=== PATIENT | male | born 1980 | race Hispanic/Latino ===

== ENCOUNTER 2020-12-21 11:20 | Emergency (ER) | payer BC ==
[~2020-12-21] VITALS: Ht 180.3 cm; Wt 104.5 kg
[2020-12-21] MEDS ORDERED: LORTAB 5/3255 MG PO (11:57)
[2020-12-21 12:39] LABS: HEMATOCRIT 49.2 % (39.0-50.0); HEMOGLOBIN 16.5 g/dl (14.0-18.0); IMMATURE GRANULOCYTES 0.3 % (0.0-5.0); MEAN CELL VOLUME 82.1 fL CALC (80.0-100.0); MEAN CORPUSCULAR HGB 27.5 pG CALC (26.0-32.0); MEAN CORPUSCULAR HGB CONC 33.5 g/dL CAL (32.0-36.0); NEUT# 5.2 thou/uL (1.82-7.42); RED BLOOD COUNT 5.99 mill/uL (4.70-6.10); RED CELL DISTRI WIDTH 11.8 % (11.5-15.5)
[2020-12-21 13:14] LABS: ALBUMIN 4.5 g/dL (3.2-5.0); ALKALINE PHOSPHATASE 79 u/l (38-126); ANION GAP 11 (6-22 (CALC)); BILIRUBIN, TOTAL 0.7 mg/dL (0.0-1.4); BUN 12 mg/dL (9-20); BUN/CREATININE RATIO 17 (12-20 (CALC)); CARBON DIOXIDE 30 mmol/l (22-30); CHLORIDE 101 mmol/l (95-108); CREATININE 0.7 mg/dL (0.7-1.3); GFR > 60 ML/MIN (>=60 (CALC)); GFR FOR AFR.AMER. > 60 ML/MIN (>=60 (CALC)); POTASSIUM 4.1 mmol/l (3.5-5.1); SGOT/AST 52 u/l (17-59); SODIUM 138 mmol/l (137-146)
[2020-12-21 13:49] VITALS: BP 105/54
== END 2020-12-21 14:00 | disposition home or self-care (01) | DRG 149 ==
LOC: ED 11:20
PROVIDERS: Family Medicine
DX: H81.12 Benign paroxysmal vertigo, left ear (principal)

== ENCOUNTER 2022-06-23 07:47 | Emergency (ER) | payer BC ==
[2022-06-23] VITALS (22 sets, daily range): BP systolic 89–134; BP diastolic 40–70
[~2022-06-23] VITALS: Ht 180.3 cm; Wt 77.0 kg
[~2022-06-23 07:47] MED LIST: LORTAB 5/3255 MG PO
[2022-06-23 09:43] LABS: BASO% 0.3 % (0-3); HEMATOCRIT 48.9 % (39.0-50.0); HEMOGLOBIN 16.5 g/dl (14.0-18.0); IMMATURE GRANULOCYTES 0.2 % (0.0-5.0); LYMPH% 6.9 % (15-41); MEAN CELL VOLUME 82.3 fL CALC (80.0-100.0); MEAN CORPUSCULAR HGB 27.8 pG CALC (26.0-32.0); MEAN CORPUSCULAR HGB CONC 33.7 g/dL CAL (32.0-36.0); MONO% 5.4 % (2-13); NEUT# 8.29 thou/uL (1.82-7.42); NEUT% 87.2 % (42-76); RED BLOOD COUNT 5.94 mill/uL (4.70-6.10); RED CELL DISTRI WIDTH 11.7 % (11.5-15.5)
[2022-06-23] MEDS ORDERED: ATORVASTATIN CA10 MG PO (09:45)
[2022-06-23 09:48] LABS: ALBUMIN 4.2 g/dL (3.2-5.0); ALKALINE PHOSPHATASE 58 u/l (38-126); ANION GAP 14 (6-22 (CALC)); BILIRUBIN, TOTAL 0.7 mg/dL (0.2-1.3); BUN 12 mg/dL (9-20); BUN/CREATININE RATIO 17 (12-20 (CALC)); CHLORIDE 103 mmol/l (95-108); CREATININE 0.7 mg/dL (0.7-1.3); GFR FOR AFR.AMER. > 60 ML/MIN (>=60 (CALC)); GFR OTHER RACES > 60 ML/MIN (>=60 (CALC)); POTASSIUM 4.2 mmol/l (3.5-5.1); SGOT/AST 28 u/l (17-59); SODIUM 134 mmol/l (137-146); TOTAL PROTEIN 6.8 g/dL (6.3-8.2)
[2022-06-23 09:51] LABS: CARBON DIOXIDE 21 mmol/l (22-30)
[2022-06-23] MEDS ORDERED: CIPROFLOXACN500 MG PO (13:51)
[2022-06-23] MEDS ORDERED: METRONIDAZOLE500 MG PO (13:51)
[2022-06-23] MEDS ORDERED: ZOFRAN4 MG/TAB PO (13:51)
[2022-06-23 14:11] LABS: URINE BILIRUBIN - DIPSTICK NEGATIVE (NEGATIVE); URINE BLOOD DIPSTICK NEGATIVE (NEGATIVE); URINE COLOR YELLOW; URINE GLUCOSE - DIPSTICK NEGATIVE (NEGATIVE); URINE KETONE NEGATIVE (NEGATIVE); URINE LEUK ESTERASE NEGATIVE (NEGATIVE); URINE PROTEIN - DIPSTICK NEGATIVE (NEG-TRACE); URINE SPECIFIC GRAVITY <=1.005; URINE UROBILINOGEN - DIPSTICK 0.2 E.U./dL (0.2)
[2022-06-23 14:14] LABS: URINE NITRITE - DIPSTICK NEGATIVE (Negative)
== END 2022-06-23 14:32 | disposition home or self-care (01) | DRG 373 ==
LOC: ED 07:47
PROVIDERS: Family Medicine
DX: A04.5 Campylobacter enteritis (principal)

== ENCOUNTER 2022-07-17 16:51 | Emergency (ER) | payer BC ==
[~2022-07-17] VITALS: Ht 180.3 cm; Wt 101.0 kg
[~2022-07-17 16:51] MED LIST changes: +ATORVASTATIN CA10 MG PO; +CIPROFLOXACN500 MG PO; +METRONIDAZOLE500 MG PO; +ZOFRAN4 MG/TAB PO
[2022-07-17 17:17] VITALS: BP 148/82
[2022-07-17 17:36] LABS: BASO% 0.5 % (0-3); EOS% 1.1 % (0-8); HEMATOCRIT 49.4 % (39.0-50.0); HEMOGLOBIN 16.6 g/dl (14.0-18.0); IMMATURE GRANULOCYTES 0.1 % (0.0-5.0); LYMPH% 33.2 % (15-41); MEAN CELL VOLUME 81.9 fL CALC (80.0-100.0); MEAN CORPUSCULAR HGB 27.5 pG CALC (26.0-32.0); MEAN CORPUSCULAR HGB CONC 33.6 g/dL CAL (32.0-36.0); MONO% 6.8 % (2-13); NEUT# 4.8 thou/uL (1.82-7.42); NEUT% 58.3 % (42-76); RED BLOOD COUNT 6.03 mill/uL (4.70-6.10); RED CELL DISTRI WIDTH 11.8 % (11.5-15.5)
[2022-07-17 17:49] LABS: ALKALINE PHOSPHATASE 73 u/l (38-126); BILIRUBIN, TOTAL 0.6 mg/dL (0.2-1.3); BUN 16 mg/dL (9-20); BUN/CREATININE RATIO 17 (12-20 (CALC)); CARBON DIOXIDE 23 mmol/l (22-30); CHLORIDE 104 mmol/l (95-108); GFR FOR AFR.AMER. > 60 ML/MIN (>=60 (CALC)); GFR OTHER RACES > 60 ML/MIN (>=60 (CALC)); LIPASE 87 u/l (23-300); POTASSIUM 3.6 mmol/l (3.5-5.1); SGOT/AST 47 u/l (17-59)
[2022-07-17 17:51] LABS: ALBUMIN 5.2 g/dL (3.2-5.0); ANION GAP 19 (6-22 (CALC)); SODIUM 142 mmol/l (137-146); TOTAL PROTEIN 8.3 g/dL (6.3-8.2)
[2022-07-17 18:00] VITALS: BP 114/71
[2022-07-17] MEDS ORDERED: PERCOCET 5/325M1 TAB PO (20:06)
[2022-07-17] MEDS ORDERED: TAMSULOSIN0.4 MG PO (20:06)
[2022-07-17] MEDS ORDERED: KEFLEX500 MG PO (20:06)
[2022-07-17] MEDS ORDERED: TORADOL PO (20:06)
[2022-07-17 20:49] VITALS: BP 114/71
[2022-07-17 21:00] LABS: URINE BLOOD DIPSTICK LARGE (NEGATIVE); URINE COLOR BROWN; URINE GLUCOSE - DIPSTICK NEGATIVE (NEGATIVE); URINE KETONE NEGATIVE (NEGATIVE); URINE LEUK ESTERASE NEGATIVE (NEGATIVE); URINE PH 5.5 (4.5-8.0); URINE PROTEIN - DIPSTICK 30 mg/dL (NEG-TRACE); URINE SPECIFIC GRAVITY >=1.030; URINE UROBILINOGEN - DIPSTICK 0.2 E.U./dL (0.2)
[2022-07-17 21:01] LABS: URINE BILIRUBIN - DIPSTICK SEE COMMNET (NEGATIVE); URINE NITRITE - DIPSTICK NEGATIVE (Negative)
[2022-07-17 21:07] LABS: URINE CALCIUM OXALATE CRYSTALS FEW lpf; URINE MUCUS FEW hpf (NONE-FEW); URINE RBC 25-50 RBC/hpf (0-5); URINE SQUAMOUS EPITHELIAL CELL RARE EPI/hpf (0-FEW); URINE WBC 0-2 WBC/hpf (0-5)
[2022-07-21] MEDS ORDERED: KETOROLAC10 MG PO (07:56)
== END 2022-07-17 21:11 | disposition home or self-care (01) | DRG 694 ==
LOC: ED 16:51
PROVIDERS: Nurse Practitioner
DX: N20.1 Calculus of ureter (principal)
CPT/HCPCS: Q9967

== ENCOUNTER 2022-07-24 07:10 | Day surgery (SDC) | payer BC ==
[~2022-07-24] VITALS: Ht 180.3 cm; Wt 101.2 kg
[~2022-07-24 07:10] MED LIST changes: +KEFLEX500 MG PO; +KETOROLAC10 MG PO; +PERCOCET 5/325M1 TAB PO; +TAMSULOSIN0.4 MG PO; +TORADOL PO
[2022-07-24 10:16] VITALS: BP 117/83
== END 2022-07-24 09:55 | disposition home or self-care (01) | DRG 387 ==
LOC: ENDO 07:10 → ORM 09:10 → ENDO 09:55 → ORM 10:45
PROVIDERS: ATTEND Internal Medicine Gastroenterology
PROC: 0DBK8ZX Excision of Ascending Colon, Via Natural or Artificial Opening Endoscopic, Diagnostic (ICD-10-PCS; principal; 2022-07-24)
PROC: 0DBL8ZX Excision of Transverse Colon, Via Natural or Artificial Opening Endoscopic, Diagnostic (ICD-10-PCS; 2022-07-24)
PROC: 0DBN8ZX Excision of Sigmoid Colon, Via Natural or Artificial Opening Endoscopic, Diagnostic (ICD-10-PCS; 2022-07-24)
PROC: 0DBP8ZX Excision of Rectum, Via Natural or Artificial Opening Endoscopic, Diagnostic (ICD-10-PCS; 2022-07-24)
PROC: 0DBM8ZX Excision of Descending Colon, Via Natural or Artificial Opening Endoscopic, Diagnostic (ICD-10-PCS; 2022-07-24)
PROC: 0DBH8ZX Excision of Cecum, Via Natural or Artificial Opening Endoscopic, Diagnostic (ICD-10-PCS; 2022-07-24)
PROC: 0DB48ZX Excision of Esophagogastric Junction, Via Natural or Artificial Opening Endoscopic, Diagnostic (ICD-10-PCS; 2022-07-24)
PROC: 0DB78ZX Excision of Stomach, Pylorus, Via Natural or Artificial Opening Endoscopic, Diagnostic (ICD-10-PCS; 2022-07-24)
DX: K50.10 Crohn's disease of large intestine without complications (principal); K29.70 Gastritis, unspecified, without bleeding; B96.81 Helicobacter pylori [H. pylori] as the cause of diseases classified elsewhere; K21.9 Gastro-esophageal reflux disease without esophagitis; K64.8 Other hemorrhoids; Z86.19 Personal history of other infectious and parasitic diseases